=== PATIENT | female | born 1975 ===

== ENCOUNTER 2022-03-12 05:19 | Day surgery (SDC) | payer OTHER ==
[~2022-03-12 05:19] MED LIST: CYMBALTA30 MG PO; GABAPENTIN800 M1 PO; ZANAFLEX2 M1 PO; ZYRTEC10 M3 PO
== END 2022-03-12 11:40 | disposition home or self-care (01) ==
LOC: CIR.AMB 05:19
PROVIDERS: ATTEND Anesthesiology Pain Medicine
DX: M51.26 Other intervertebral disc displacement, lumbar region (principal); M51.27 Other intervertebral disc displacement, lumbosacral region; M51.36 Other intervertebral disc degeneration, lumbar region; M51.37 Other intervertebral disc degeneration, lumbosacral region; M99.73 Connective tissue and disc stenosis of intervertebral foramina of lumbar region; Z53.09 Procedure and treatment not carried out because of other contraindication; R06.7 Sneezing; R09.81 Nasal congestion